=== PATIENT | male | born 1975 | race Caucasian/White ===

== ENCOUNTER → 2021-02-13 12:40 | Outpatient (BNVA) | payer OTHER, SELFPAY | PROVIDERS: PCP Internal Medicine; Visit Provider Physician Assistant Medical | DX: S16.1XXA Strain of muscle, fascia and tendon at neck level, initial encounter (principal); S46.811A Strain of other muscles, fascia and tendons at shoulder and upper arm level, right arm, initial encounter; W19.XXXA Unspecified fall, initial encounter | CPT/HCPCS: 99203 ==